=== PATIENT | male | born 1950 | race Caucasian/White ===

== ENCOUNTER 2018-09-01 11:45 | Inpatient (IN) | payer MEDICARE ==
[2018-09-01 12:22] LABS: #Eosinphils 0.1 thou/uL (0.0-0.7); #Lymphocytes 1.4 thou/uL (1.20-3.40); #Monocytes 0.6 thou/uL (0.11-0.59); #Neutrophils 7.1 thou/uL (1.40-6.50); %Basophils 0.4 % (0.0-1.0); %Eosinophils 0.8 % (0.0-10.0); %Lymphocytes 15.2 % (21.0-51.0); %Monocytes 6.3 % (0.0-10.0); %Neutrophils 77.3 % (42.0-75.0); Hemoglobin 18.5 g/dL (14.0-18.0); Mean Corpuscular HGB CONC 32.7 g/dL (32.0-36.0); Mean Corpuscular Hemoglobin 28.9 pg (27.0-31.0); Mean Corpuscular Volume 88.4 fL (78.0-98.0); Mean Platelet Volume 8.5 fL (7.4-10.4); Platelet Count 217 thou/uL (130-400); RBC Distribution Width 13.2 % (11.5-14.5); Red Blood Cell (RBC) Count 6.41 mill/uL (4.70-6.10); White Blood Cell (WBC) Count 9.2 thou/uL (4.8-10.8)
[2018-09-01] MEDS ORDERED: Aspirin 325 MG TAB ONE (12:25)
--- NOTE | 2018-09-01 12:25 | RAD ---
SINGLE VIEW OF THE CHEST: Comparison: 01-14-17 History: Abnormal EKG FINDINGS: Single view of the chest shows a normal sized cardiomediastinal silhouette. There is no evidence of c onsolidation, mass, or pleural effusion. The bones are unremarkable. IMPRESSION: No evidence of acute cardiopulmonary disease. POS: [facility]
[2018-09-01 13:17] LABS: ALT (SGPT) 29 U/L (8-55); AST (SGOT) 23 U/L (5-34); Alkaline Phosphatase 87 U/L (40-150); Anion Gap 15 mmol/L (10-20); BUN (Urea Nitrogen) 30 mg/dL (8.4-25.7); Bilirubin, Total 0.9 mg/dL (0.2-1.2); CK (CPK) 80 U/L (30-200); Calc. Creatinine Clearance 0 mL/min (70-130); Calcium 9.2 mg/dL (7.8-10.44); Carbon Dioxide 27 mmol/L (23-31); Chloride 100 mmol/L (98-107); Estimated GFR-MDRD 54; Glucose 104 mg/dL (80-115); Lipase 15 U/L (8-78); Magnesium 2.4 mg/dL (1.6-2.6); Potassium 4.5 mmol/L (3.5-5.1); Sodium 137 mmol/L (136-145)
[2018-09-01 13:46] LABS: CKMB 4.1 ng/mL (0-6.6); Troponin I 0.027 ng/mL (< 0.028)
[2018-09-01] MEDS ORDERED: Diltiazem 125 MG/25 ML ONE (16:56)
[2018-09-01 17:57] LABS: Troponin I 0.032 ng/mL (< 0.028)
[2018-09-01 21:14] LABS: Troponin I 0.028 ng/mL (< 0.028)
[2018-09-01] MEDS ORDERED: hydrALAZINE 20 MG/ML VIAL SLOW IVP PRN (23:10)
[2018-09-01] MEDS ORDERED: Digoxin 0.5 MG/2 ML AMP SLOW IVP SCH (23:10)
[2018-09-01] MEDS ORDERED: Acetaminophen 325 MG TAB PO PRN (23:10)
[2018-09-02 01:03] VITALS: BMI 48.5
--- NOTE | 2018-09-02 03:24 | HP ---
PRIMARY CARE PHYSICIAN: Dr. Georgie Negrete. CHIEF COMPLAINT: Irregular heartbeat and atrial fibrillation. HISTORY OF PRESENT ILLNESS: Mr. Martinez is a pleasant 68-year-old gentleman who has a history of hypertension and obstructive sleep apnea. He was in his usual state of health until the day of admission. He says he was feeling fine and had gone to see his primary care physician for a routine checkup. She noted that his heart rate was irregular and got an EKG and he was found to be in atrial fibrillation with rapid ventricular response with the heart rates in the 130s to 140s. She sent him over to the ER for evaluation. It was confirmed that he was in atrial fibrillation and RVR, and he is being placed in observation for further management. The patient says that he has not been feeling bad at all. He denies any chest pain or shortness of breath. He denies any dizziness. He denies feeling lightheaded. No nausea, no vomiting. He denies any increase in leg swelling. He says he normally has some dyspnea on exertion, but he says this is regular for him and has not changed. REVIEW OF SYSTEMS: All systems are reviewed and are negative except for that mentioned in the history of present illness. PAST MEDICAL HISTORY: Significant for obstructive sleep apnea, hypertension, dyslipidemia, obesity, and renal cell carcinoma. Also for the hypertension, he is not on blood pressure medication currently. PAST SURGICAL HISTORY: He has had a left nephrectomy. SOCIAL HISTORY: He is . He is a nonsmoker and nondrinker. Has 2 children. He would want to be a full code. FAMILY HISTORY: Significant for diabetes mellitus in his maternal grandmother as well as congestive heart failure. ALLERGIES: NO KNOWN DRUG ALLERGIES. CURRENT MEDICATIONS: Include; 1. Vitamin D2 at 50,000 units daily. 2. Vitamin C 2000 mg daily. 3. Furosemide 80 mg once a day. 4. Potassium chloride 20 mEq daily. 5. Tramadol 50 mg q.6 as needed. 6. Aspirin 325 mg p.o. daily. PHYSICAL EXAMINATION: GENERAL: He is alert and oriented. He appears to be in no acute distress. VITAL SIGNS: Blood pressure was 144/80, heart rate 130, respiratory rate of 20, temperature is 98. HEENT: Pupils are equal, round, and reactive. Extraocular muscles are intact. Sclerae anicteric. Throat, there is no erythema, no exudates. NECK: No adenopathy. No bruits. LUNGS: Clear to auscultation. There is no wheezing, no rales, no rhonchi. CARDIOVASCULAR: Heart rate is tachycardic, is irregular. There are no murmurs, clicks, or rubs. ABDOMEN: Obese. It is soft. It is nontender, nondistended. Positive for bowel sounds. There is no rebound, no guarding, no organomegaly. EXTREMITIES: He has some nonpitting edema. Chronic venous stasis changes. There is no calf tenderness. No joint effusions. NEUROLOGIC: Cranial nerves 2 through 12 are grossly intact. His muscle strength in his upper and lower extremities are also intact. SKIN AND INTEGUMENT: Again, chronic venous stasis changes, some varicose veins, but no other rash or lesions. IMAGING: Chest x-ray by my reading, it is actually poorly penetrated; however, there is no evidence of any infiltrates or cardiomegaly. On his EKG, it is atrial fibrillation, heart rate is 134, he has a left anterior fascicular block. This is also by my reading. LABORATORY RESULTS: White blood cell count is 9.2, hemoglobin 18.5, hematocrit 56.7, platelet count is 217. Sodium 137, potassium 4.5, chloride is 100, CO2 is 27, BUN of 30, creatinine of 1.3, glucose is 104. Troponin is 0.027 and TSH is 1.58. ASSESSMENT: 1. This is a pleasant 68-year-old gentleman who presents to the emergency room in atrial fibrillation with rapid ventricular response. He currently has a heart rate ranging in the low 100s with a borderline blood pressure. We will probably need to admit him full admission given his heart rate continues to fluctuate, give him IV digoxin. An echocardiogram will be ordered as well as a Cardiology consult. We will allow the web marketing strategist to recommend anticoagulation and any further medications with regard to control his atrial fibrillation. 2. For hypertension, currently his blood pressure is low. Should he need any p.r.n. medications, these will be made available. 3. Obstructive sleep apnea. He can use home CPAP with his current settings and further recommendations are to follow. Job ID: [id number]
[2018-09-02 06:23] LABS: #Eosinphils 0.1 thou/uL (0.0-0.7); #Lymphocytes 1.3 thou/uL (1.20-3.40); #Monocytes 0.7 thou/uL (0.11-0.59); %Basophils 0.6 % (0.0-1.0); %Eosinophils 1.7 % (0.0-10.0); %Lymphocytes 15.8 % (21.0-51.0); %Monocytes 8.1 % (0.0-10.0); %Neutrophils 73.9 % (42.0-75.0); Hemoglobin 16.6 g/dL (14.0-18.0); Mean Corpuscular HGB CONC 32.4 g/dL (32.0-36.0); Mean Corpuscular Hemoglobin 28.7 pg (27.0-31.0); Mean Corpuscular Volume 88.4 fL (78.0-98.0); Mean Platelet Volume 8.1 fL (7.4-10.4); Platelet Count 211 thou/uL (130-400); RBC Distribution Width 12.8 % (11.5-14.5); Red Blood Cell (RBC) Count 5.81 mill/uL (4.70-6.10); White Blood Cell (WBC) Count 8.2 thou/uL (4.8-10.8)
[2018-09-02 06:38] LABS: Anion Gap 13 mmol/L (10-20); BUN (Urea Nitrogen) 31 mg/dL (8.4-25.7); Calc. Creatinine Clearance 126 mL/min (70-130); Calcium 9.3 mg/dL (7.8-10.44); Carbon Dioxide 30 mmol/L (23-31); Chloride 99 mmol/L (98-107); Estimated GFR-MDRD 54; Glucose 105 mg/dL (80-115); Potassium 3.8 mmol/L (3.5-5.1); Sodium 138 mmol/L (136-145)
[2018-09-02] MEDS ORDERED: Enoxaparin Sodium 40 MG/0.4 ML SYRINGE SC SCH (09:00)
[2018-09-02] MEDS ORDERED: traMADol HCl 50 MG TAB PO PRN (09:37)
[2018-09-02] MEDS ORDERED: Furosemide 80 MG TAB PO PRN (09:37)
[2018-09-02] MEDS ORDERED: Ergocalciferol 1.25 MG(50,000 UNITS) CAP PO SCH (11:00)
--- NOTE | 2018-09-02 16:03 | PDOC.PN ---
- Subjective Encounter Start Date: 09/02/18 Encounter Start Time: 10:05 Mr. Martinez was seen today in follow-up of Atrial flutter. He does not have any complaints. He denies chest pain or shortness of breath. - Objective Resuscitation Status - Order Detail: 09/01/18 19:14 Resuscitation Status Routine Resuscitation Status: FULL: Full Resuscitation MAR Reviewed: Yes Vital Signs & Weight: Vital Signs (12 hours) Temp Pulse Resp BP Pulse Ox 09/02/18 11:50 98 F 74 20 152/98 H 92 L 09/02/18 07:46 97.8 F 72 20 142/76 H 93 L Weight Weight 358 lb Result Diagrams: 09/02/18 05:20 09/02/18 05:20 Phys Exam - Physical Examination HEENT: PERRLA Respiratory: no wheezing, no rales, no rhonchi, clear to auscultation bilateral Cardiovascular: RRR, no significant murmur Gastrointestinal: soft, non-tender, positive bowel sounds Musculoskeletal: no edema Dx/Plan (1) Atrial flutter Code(s): I48.92 - UNSPECIFIED ATRIAL FLUTTER Status: Acute (2) Hypertension Code(s): I10 - ESSENTIAL (PRIMARY) HYPERTENSION Status: Chronic (3) Morbid obesity Code(s): E66.01 - MORBID (SEVERE) OBESITY DUE TO EXCESS CALORIES Status: Chronic (4) JAVI (obstructive sleep apnea) Code(s): G47.33 - OBSTRUCTIVE SLEEP APNEA (ADULT) (PEDIATRIC) Status: Chronic Comment: CPAP hs - Plan * Atrial Flutter- his heart rate is controlled. * Await further recommendations from Cardiology * Echo is also pending * HTN- patient say this is controlled off medications- so far blood pressure is stable
[2018-09-02] MEDS ORDERED: Metoprolol Tartrate 25 MG TAB PO SCH (22:00)
[2018-09-02] MEDS ORDERED: Apixaban 5 MG TAB PO SCH (22:00)
--- NOTE | 2018-09-03 04:46 | CON ---
DATE OF CONSULTATION: HISTORY OF PRESENT ILLNESS: Judd Martinez is a 68-year-old white male from [place], who i initially evaluated once in the hospital in December 2016. He had been using CPAP for obstructive sleep apnea for 20 years. One and a half years prior to that, he had been admitted to [facility] with shortness of breath. He underwent a probable nuclear stress test and was told that this was normal. He then presented in December 2016 with increased shortness of breath, but no chest discomfort. He had an O2 saturation of 90% and this dropped to the high 80s in spite of 4 L/minute of O2. CT angiogram showed no evidence of pulmonary embolism. He was given IV Lasix. It was felt that he had acute on chronic respiratory failure due to obesity and hypoventilation syndrome with morbid obesity and hypercapnia. Echocardiogram revealed ejection fraction of 50% to 55%. He did undergo nuclear stress testing, which showed no evidence of ischemia. I have not seen him since that time. He now is admitted with atrial fibrillation. He went to see his doctor and was noted to have a fast heartbeat, and EKG was obtained. He denies any chest discomfort. He denies any PND, orthopnea, shortness of breath, or leg edema. He denies any palpitations. PAST MEDICAL HISTORY: Hypertension, diabetes, hyperlipidemia, renal cell carcinoma status post left nephrectomy, obstructive sleep apnea, morbid obesity, benign prostatic hypertrophy. OPERATIONS: Left nephrectomy. SOCIAL HISTORY: He does not smoke. He is . He does not drink. MEDICATIONS: 1. Vitamin D2. 2. Vitamin C. 3. Furosemide 80 mg daily. 4. KCl 20 mEq daily. 5. Tramadol 50 at bedtime. 6. Aspirin 325 daily. ALLERGIES: NONE. REVIEW OF SYSTEMS: A 10-point review of systems unremarkable. PHYSICAL EXAMINATION: VITAL SIGNS: Blood pressure 139/76, pulse of 62 and irregularly irregular. HEENT: PERRL. NECK: Supple. CHEST: Clear. CARDIAC: S1 and S2 normal without any S3, S4, or murmurs. ABDOMEN: Obese. Normal bowel sounds. No tenderness. EXTREMITIES: Revealed no clubbing. There is trace pretibial edema. LABORATORY DATA: EKG reveals atrial fibrillation-flutter with a rate of 134 per minute, possible old inferior infarct, possible old anterior infarct. CBC is unremarkable. Sodium 138, potassium 3.8, chloride 99, carbon dioxide 30, BUN 31 , creatinine 1.32. Cardiac enzymes are unremarkable except one of troponin I of 0.032. TSH is normal. IMPRESSION: 1. New onset atrial fibrillation. He is essentially asymptomatic with this. 2. Obstructive sleep apnea. 3. History of obesity-hypoventilation syndrome. 4. Hyperlipidemia. 5. Hypertension. 6. Chronic kidney disease, status post left nephrectomy for renal cell carcinoma. PLAN: The patient will be started on Eliquis 5 mg b.i.d. for stroke prophylaxis. He will be placed on beta-bruce for better rate control. With his obesity-hypoventilation syndrome, it may be difficult to keep him in a sinus rhythm. Echocardiogram will be performed to assess left ventricular function. Job ID: [id number] [facility]
[2018-09-03] MEDS: Rosuvastatin 10 MG TAB PO SCH (08:36)
[2018-09-03] MEDS: Metoprolol Tartrate 50 MG TAB PO SCH ×2 (08:36→21:07)
[2018-09-03] MEDS: Ascorbic Acid 500 mg Chewable Tablet PO SCH (08:36)
[2018-09-03] MEDS: Potassium Citrate 10 MEQ TAB PO SCH (08:37)
[2018-09-03] MEDS: Apixaban 5 MG TAB PO SCH ×2 (08:37→21:07)
--- NOTE | 2018-09-03 11:50 | PDOC.PN ---
- Subjective Encounter Start Date: 09/03/18 Encounter Start Time: 09:30 Mr. Feliciano was seen today in follow-up of Atrial Flutter. He does not have any complaints this morning. - Objective Resuscitation Status - Order Detail: 09/01/18 19:14 Resuscitation Status Routine Resuscitation Status: FULL: Full Resuscitation MAR Reviewed: Yes Vital Signs & Weight: Vital Signs (12 hours) Temp Pulse Resp BP Pulse Ox 09/03/18 07:38 93 L 09/03/18 07:37 98 F 64 17 115/68 93 L 09/03/18 04:00 97.6 F 52 L 20 110/65 93 L Weight Weight 357 lb 12.8 oz I&O: 09/02/18 09/03/18 09/04/18 06:59 06:59 06:59 Intake Total 1500 Balance 1500 Result Diagrams: 09/02/18 05:20 09/02/18 05:20 Phys Exam - Physical Examination HEENT: PERRLA Respiratory: no wheezing, no rales, no rhonchi, clear to auscultation bilateral Cardiovascular: RRR, no significant murmur, no rub Gastrointestinal: soft, non-tender, no distention, positive bowel sounds Musculoskeletal: no edema Dx/Plan (1) Atrial flutter Code(s): I48.92 - UNSPECIFIED ATRIAL FLUTTER Status: Acute (2) Hypertension Code(s): I10 - ESSENTIAL (PRIMARY) HYPERTENSION Status: Chronic (3) Morbid obesity Code(s): E66.01 - MORBID (SEVERE) OBESITY DUE TO EXCESS CALORIES Status: Chronic (4) JAVI (obstructive sleep apnea) Code(s): G47.33 - OBSTRUCTIVE SLEEP APNEA (ADULT) (PEDIATRIC) Status: Chronic Comment: CPAP hs - Plan * Atrial Flutter- His heart rate has been better, but he remain in Atrial Flutter- continue Metoprolol, and Eliquis for CVA prevention * Echo results noted- he has a mild systolic heart failure * HTN- blood pressure was a bit elevated- will monitor the trend * Await further recommendations from Cardiology.
[2018-09-04 05:47] LABS: Hemoglobin 16.5 g/dL (14.0-18.0); Platelet Count 212 thou/uL (130-400)
[2018-09-04 05:59] LABS: Anion Gap 11 mmol/L (10-20); BUN (Urea Nitrogen) 24 mg/dL (8.4-25.7); Calc. Creatinine Clearance 136 mL/min (70-130); Calcium 9.3 mg/dL (7.8-10.44); Carbon Dioxide 28 mmol/L (23-31); Chloride 103 mmol/L (98-107); Estimated GFR-MDRD 59; Glucose 100 mg/dL (80-115); Potassium 4.2 mmol/L (3.5-5.1); Sodium 138 mmol/L (136-145)
[2018-09-04] MEDS: Apixaban 5 MG TAB PO SCH ×2 (08:58→20:24)
[2018-09-04] MEDS: Rosuvastatin 10 MG TAB PO SCH (08:58)
[2018-09-04] MEDS: Dronedarone HCl 400 MG TAB PO SCH ×2 (08:58→19:05)
[2018-09-04] MEDS: Metoprolol Tartrate 50 MG TAB PO SCH ×2 (08:58→20:24)
--- NOTE | 2018-09-04 10:58 | PQF ---
CLINICAL DOCUMENTATION IMPROVEMENT CLARIFICATION FORM: ICD-10 Updated PLEASE DO AN ADDENDUM TO THE PROGRESS NOTE WITH ANY DOCUMENTATION UPDATES OR ADDITIONS AND CARRY THROUGH TO DC SUMMARY. THANK YOU. DATE: 09/03/18 ATTN: DR. ANSARI Please exercise your independent, professional judgment in responding to the clarification form. Clinical indicators are provided on the bottom of this form for your review Please check appropriate box(s): HEART FAILURE: ACUITY [ ] Acute [ ] Acute on Chronic [ ] Chronic [ ] Other diagnosis [x ] Unable to determine In addition, please specify: Present on Admission (POA): [x ] Yes [ ] No [ ] Unable to determine For continuity of documentation, please document condition throughout progress notes and discharge summary. Thank You. CLINICAL INDICATORS - SIGNS / SYMPTOMS / LABS PROGRESS NOTE 09/03: "ECHO RESULTS NOTED- HE HAS A MILD SYSTOLIC HEART FAILURE" ECHO REPORT: "EJECTION FRACTION IS VISUALLY ESTIMATED AT 45-50%" RISKS: AFIB H/O HYPERTENSION TREATMENT: CARDIAC MONITORING PO LASIX (09/02-PRESENT) CARDIOLOGY CONSULT ECHOCARDIOGRAM (This form is maintained as a part of the permanent medical record) 2014 [employer]. All Rights Reserved TERENCE [email or web address] Office: [phone] [facility]
[2018-09-04] MEDS ORDERED: Glycopyrrolate 0.2 MG/ML 5 ML SYRINGE ONE (11:32)
[2018-09-04] MEDS ORDERED: PROPOFOL 200 MG/20 ML VIAL ONE (11:32)
--- NOTE | 2018-09-04 14:38 | PDOC.PN ---
- Subjective Encounter Start Date: 09/04/18 Encounter Start Time: 11:00 Mr. Martinez was seen today in follow-up. He does not have any complaints this morning. - Objective Resuscitation Status - Order Detail: 09/01/18 19:14 Resuscitation Status Routine Resuscitation Status: FULL: Full Resuscitation MAR Reviewed: Yes Vital Signs & Weight: Vital Signs (12 hours) Temp Pulse Resp BP Pulse Ox 09/04/18 12:00 97.2 F L 74 18 128/72 95 09/04/18 08:00 98.0 F 72 17 134/78 93 L 09/04/18 04:00 96.5 F L 71 16 112/72 95 Weight Weight 357 lb 12.8 oz I&O: 09/03/18 09/04/18 09/05/18 06:59 06:59 06:59 Intake Total 1500 880 Balance 1500 880 Result Diagrams: 09/04/18 05:17 09/04/18 05:17 Phys Exam - Physical Examination HEENT: PERRLA Respiratory: no wheezing, no rales, no rhonchi, clear to auscultation bilateral Cardiovascular: RRR, no significant murmur, no rub Gastrointestinal: soft, non-tender, no distention, positive bowel sounds Musculoskeletal: no edema, pulses present Dx/Plan (1) Atrial flutter Code(s): I48.92 - UNSPECIFIED ATRIAL FLUTTER Status: Acute (2) Hypertension Code(s): I10 - ESSENTIAL (PRIMARY) HYPERTENSION Status: Chronic (3) Morbid obesity Code(s): E66.01 - MORBID (SEVERE) OBESITY DUE TO EXCESS CALORIES Status: Chronic (4) JAVI (obstructive sleep apnea) Code(s): G47.33 - OBSTRUCTIVE SLEEP APNEA (ADULT) (PEDIATRIC) Status: Chronic Comment: CPAP hs - Plan * Atrial Flutter- his heart rate is stable, but he remains in flutter- He has been evaluated by Dr. Adams, and the plan is for RFA today or tomorrow * HTN- blood pressure is stable.
[2018-09-04] MEDS ORDERED: Lidocaine 1% (PF) 30 ML VIAL ONE (16:41)
[2018-09-04] MEDS: Ascorbic Acid 500 mg Chewable Tablet PO SCH (16:41)
[2018-09-04] MEDS ORDERED: Heparin 10,000 UNITS/1 ML VIAL ONE (16:41)
[2018-09-04] MEDS: Potassium Citrate 10 MEQ TAB PO SCH (16:41)
[2018-09-04] MEDS ORDERED: Propofol 500 MG/50 ML VIAL ONE (16:49)
[2018-09-04] MEDS ORDERED: Fentanyl 100 MCG/2 ML VIAL ONE (16:49)
[2018-09-04] MEDS ORDERED: KETAMINE 100 MG/ML (5ML VIAL) ONE (16:49)
[2018-09-04] MEDS ORDERED: Midazolam HCl 2 mg/2 ml Vial ONE (16:49)
[2018-09-04] MEDS ORDERED: DOPamine 400 MG/D5W 250 ML 250 ML ONE (18:01)
--- NOTE | 2018-09-05 01:27 | OP ---
DATE OF PROCEDURE: 09/04/2018 TYPE OF STUDY: Transesophageal echocardiogram report. ADDITIONAL REFERRING PHYSICIAN: Dr. Chou. INDICATION FOR PROCEDURE: Mr. Martinez is a pleasant 68-year-old male with history of morbid obesity. He is here for a transesophageal echocardiogram, hence unknown duration of atrial flutter with left intracardiac clots. DESCRIPTION OF PROCEDURE: The patient has received propofol by Anesthesia specialist. After adequate level of sedation achieved, a standard transesophageal echocardiogram probe was passed into the esophagus without difficulty. The patient tolerated the procedure well. No complications were noted. RESULTS: The left atrium is mildly enlarged about 4.2 cm in horizontal diameter, which may be appropriate for the patient's size. Left atrial appendage is visualized, contains no clots. Left atrial appendage velocities are normal. Four of four pulmonary veins are seen. The interatrial septum is without defect. The mitral valve has mild regurgitation and the aortic valve has trace regurgitation. Three leaflets identified. No stenosis seen. Tricuspid valve has mild regurgitation. Pulmonic valve has trace regurgitation. The right-sided chamber is slightly enlarged. The pericardial space without effusion. The left ventricle is normal in size with mild hypertrophy. The EF is normal over 65% via visualized portion. Ascending and descending aorta without aneurysm, dissection, or atheroma. CONCLUSION: 1. No intracardiac clots. 2. Normal left ventricular systolic function. 3. Mild mitral and tricuspid regurgitation. No other significant valvular heart diseases seen. PLAN: Proceed with ablation. Job ID: [id number]
--- NOTE | 2018-09-05 07:35 | CON ---
DATE OF CONSULTATION: 09/04/2018 ELECTROPHYSIOLOGY CONSULTATION HISTORY OF PRESENT ILLNESS: I am seeing Mr. Martinez at our [facility] telemetry floor for electrophysiology consult. His problems are; 1. Newly found atrial flutter with rapid rate. 2. History of obstructive sleep apnea. 3. History of chronic kidney disease, status post left nephrectomy for renal cell cancer. 4. History of morbid obesity with hypoventilation syndrome. 5. Hypertension. 6. Hyperlipidemia. 7. A 2D echo from 09/02/2018 reveals LVEF of 45% to 50% with right ventricular enlargement, mild mitral regurgitation, mild tricuspid regurgitation. ALLERGIES: NONE NOTED. MEDICATIONS: At home included, 1. Tramadol. 2. Rosuvastatin. 3. Potassium citrate. 4. Furosemide. 5. Cholecalciferol. 6. Aspirin. 7. Vitamin C. SUBJECTIVE: Mr. Martinez is here with progressive rapid heart beat, which was noted during his visit at his primary care physician. He denies chest pain. He has no PND, orthopnea, or lower extremity edema. He has history of fluid overload. He does not feel his palpitations. Rest of 12-point systems are otherwise unremarkable. PAST MEDICAL HISTORY: As above. He has had prior history of dyspnea and admissions for this to the [facility] a year and half ago. He underwent nuclear stress test, which was found to be normal according to him. Since then, no further cardiac followup was noted. He had negative CT scans for pulmonary embolism. He ____ Lasix from assumed diastolic heart failure. Eventually, his obesity and hypoventilation syndrome were blamed for his chronic dyspnea. PAST SURGICAL HISTORY: Significant for left nephrectomy. SOCIAL HISTORY: The patient denies smoking, EtOH, or drug use. He is . FAMILY HISTORY: Not contributory. OBJECTIVE: VITAL SIGNS: Blood pressure is 128/72, heart rate 60, respirations 20, temperature 98 degrees Fahrenheit. GENERAL: Reveals an alert and oriented man, in no apparent distress. NECK: Supple. Jugular veins are not distended. CHEST: Coarse without crackles. HEART: Sounds are irregularly irregular. S1 is variable. No murmur or gallop. ABDOMEN: Benign. Bowel sounds positive. EXTREMITIES: Lower extremities without edema, clubbing, or cyanosis. DATABASE: The telemetry strips reviewed, revealed typical atrial flutter with variable ventricular rate. EKG also suggestive of typical isthmus-dependent flutter. LABORATORY DATA: The white cell count is 8.2, hemoglobin is 16.6, platelet count is 211. Sodium 138, potassium 4.2, BUN is 24, creatinine 1.2. AST and ALT are normal. Troponin I 0.027, 0.032, 0.028 consecutively. The TSH is . ASSESSMENT AND PLAN: Mr. Martinez is a very pleasant 68-year-old man with history of obesity, nephrectomy for renal cell cancer, supposedly in remission. He has normal IV from the current echo. He was admitted with a newly found atrial flutter with rapid rate. We have discussed the potential treatment options. He understands the option for rate control with chronic anticoagulation, but also HATTIE-guided cardioversion or ablation was discussed. He is very much interested in a more definitive approach of an ablation. Prior to it, I think HATTIE would be reasonable hence the unknown duration of his atrial flutter. Cardiomyopathy with jarrell reduced LVEF of 45% to 50% on echo today, possibly related to atrial flutter with rapid rate. I expect it to improve. Anticoagulation, Eliquis started last night. We will hold it this morning in preparation for the ablation and resume likely afterwards. His CHADS-VASc score is 2. With his ( age and HTN), it is reasonable to continue for a month at least after the ablation. Risks and benefits of the procedure were discussed and he is willing to proceed. Job ID: [id number] [facility]
[2018-09-05] MEDS: Rosuvastatin 10 MG TAB PO SCH (09:13)
[2018-09-05] MEDS: Ascorbic Acid 500 mg Chewable Tablet PO SCH (09:13)
[2018-09-05] MEDS: Apixaban 5 MG TAB PO SCH (09:13)
[2018-09-05] MEDS: Dronedarone HCl 400 MG TAB PO SCH (09:13)
[2018-09-05] MEDS: Metoprolol Tartrate 50 MG TAB PO SCH (09:13)
[2018-09-05] MEDS: Potassium Citrate 10 MEQ TAB PO SCH (09:14)
--- NOTE | 2018-09-05 11:53 | PDOC.PN ---
- Subjective Encounter Start Date: 09/05/18 Encounter Start Time: 11:51 Mr. Martinez was seen today in follow-up of Ablation. - Objective Resuscitation Status - Order Detail: 09/01/18 19:14 Resuscitation Status Routine Resuscitation Status: FULL: Full Resuscitation MAR Reviewed: Yes Vital Signs & Weight: Vital Signs (12 hours) Temp Pulse Resp BP Pulse Ox 09/05/18 07:39 97.4 F L 53 L 18 119/75 96 09/05/18 03:30 97.9 F 60 14 115/66 92 L 09/05/18 00:00 97.8 F 63 20 110/72 93 L Weight Weight 357 lb 12.8 oz I&O: 09/04/18 09/05/18 09/06/18 06:59 06:59 06:59 Intake Total 880 1999 Balance 880 1999 Result Diagrams: 09/04/18 05:17 09/04/18 05:17 Phys Exam - Physical Examination Respiratory: no wheezing, no rales, no rhonchi, clear to auscultation bilateral Cardiovascular: RRR, no significant murmur, no rub Gastrointestinal: soft, non-tender, no distention, positive bowel sounds Musculoskeletal: no edema Dx/Plan (1) Atrial flutter Code(s): I48.92 - UNSPECIFIED ATRIAL FLUTTER Status: Acute (2) Hypertension Code(s): I10 - ESSENTIAL (PRIMARY) HYPERTENSION Status: Chronic (3) Morbid obesity Code(s): E66.01 - MORBID (SEVERE) OBESITY DUE TO EXCESS CALORIES Status: Chronic (4) JAVI (obstructive sleep apnea) Code(s): G47.33 - OBSTRUCTIVE SLEEP APNEA (ADULT) (PEDIATRIC) Status: Chronic Comment: CPAP hs - Plan * Atrial flutter s/p ablation- clinically stable * He has been cleared for discharge by EP.
[2018-09-05 12:45] VITALS: BP 114/70; TEMP 97.2
--- NOTE | 2018-09-05 12:46 | OP ---
DATE OF PROCEDURE: 09/04/2018 TYPE OF STUDY: Electrophysiology study and radiofrequency ablation report. REASON FOR PROCEDURE: Mr. Martinez is a 68-year-old male with history of morbid obesity, normal LVEF, here for a newly found atrial flutter. prior to the procedure demonstrates no intracardiac clots, here for ablation. DESCRIPTION OF PROCEDURE: The patient received propofol by Anesthesia specialist. After adequate level of sedation achieved, the right femoral venous area was prepped, draped, and anesthetized using subcutaneous lidocaine and with multipurpose needle, the right femoral vein was accessed under ultrasound guidance. Two 8- Azeri sheaths were introduced through which a decapolar catheter and ThermoCool SFST catheter were advanced into the right atrium. Right atrial map was performed. The CS catheter was placed into the CS. The chamber and His bundle areas were well delineated. Pacing, mapping, and recording were performed at each chamber. The following findings were noted. Baseline rhythm is atrial flutter with a cycle length of 230 milliseconds. The overdrive pacing in the cavotricuspid isthmus seems to be entering the tachycardia and the post pacing interval equals the tachycardia cycle length of 230 milliseconds suggestive of isthmus dependency. Following that, the radiofrequency ablation performed at the cavotricuspid isthmus after a detailed 3D map was obtained of the area. A total of 3 minutes and 11 seconds ablation performed, a total of 6 ablation lesions delivered. Impedance ranges were 110 to 180. During ablation, the flutter terminated. Proximal CS pacing was delivered and the transisthmus times were measured, and further ablation was delivered to ascertain block. The transisthmus time increased up to 190 milliseconds with a transisthmus block demonstrated by longest transisthmus times were adjacent to the ablation line. Basic EP study was performed, at that point sinus node recovery time was 1633, corrected sinus node recovery time was 663 which is increased. AV Wenckebach cycle length was 390, retrograde Wenckebach cycle was 560 milliseconds. AV moni ERP was 600/320 milliseconds tachycardia of 500 milliseconds was seen, but difficult to measure due to self termination. AL was 189 milliseconds, QRS 90 milliseconds, QT 397 milliseconds, AH 95 milliseconds, HV 66 milliseconds. Following this, dopamine was administered. Burst atrial pacing did not reinduce tachyarrhythmia. At the end of the case, left atrial silhouette did not reveal significant pericardial effusion. CONCLUSION: 1. Typical isthmus dependent atrial flutter terminated by CTI ablation. 2. Prolonged sinus node recovery time. 3. Normal AV and normal His bundle function. Job ID: [id number] [facility]
--- NOTE | 2018-09-06 12:07 | DIS ---
DATE OF ADMISSION: 09/01/2018 DATE OF DISCHARGE: 09/05/2018 PRIMARY CARE PHYSICIAN: Georgie Negrete MD DISCHARGE DISPOSITION: Home. PRIMARY DISCHARGE DIAGNOSES: 1. Atrial flutter. 2. Hypertension. 3. Morbid obesity. 4. Obstructive sleep apnea. DISCHARGE MEDICATIONS: Include; 1. Metoprolol 50 mg twice daily. 2. Aspirin 81 mg daily. 3. Eliquis 5 mg twice a day. 4. Tramadol 50 mg q.6 as needed. 5. Crestor 10 mg daily. 6. Potassium chloride 10 mEq daily. 7. Lasix 80 mg daily. 8. Vitamin ascorbic acid 2000 daily. PROCEDURES DONE DURING ADMISSION: The patient had an echocardiogram, it was actually poor visualization due to body habitus, it was technically difficult. The overall LV function was mildly depressed. The EF was 45% to 50%. There was no evidence of any severe valvular disease. The aortic valve was sclerotic. The patient terminated by CTI ablation. CODE STATUS: Full code. ALLERGIES: NO KNOWN DRUG ALLERGIES. HOSPITAL COURSE: Mr. Martinez is a pleasant 68-year-old gentleman, who was sent over to the hospital by his primary care physician after it was noted that he was in atrial flutter with rapid ventricular response. The patient himself was completely asymptomatic. He was started on digoxin initially and then placed on Cardizem. He had a controlled rate, but his atrial flutter did not convert to sinus. He was evaluated by both Cardiology and Electrophysiology, and he ultimately underwent CTI ablation. He had good results with return to sinus mechanism, and was subsequently able to be discharged to home. He was placed on Eliquis for stroke prevention as well as metoprolol twice daily. He was also given information on heart healthy diet as well as weight reduction. He will be following up with his primary care physician in 1 to [address] Adams as instructed. Job ID: [id number]
== END 2018-09-05 14:20 | disposition home or self-care (01) | DRG 274 ==
LOC: ERS 11:45 → ERHOLD 17:24 → OBSVTOIN 17:24 → 2SW 22:41 → 2NO 09-02 01:31
PROVIDERS: ADMIT Internal Medicine; ATTEND Internal Medicine
PROC: 02583ZZ Destruction of Conduction Mechanism, Percutaneous Approach (ICD-10-PCS; principal; 2018-09-04)
PROC: 4A023FZ Measurement of Cardiac Rhythm, Percutaneous Approach (ICD-10-PCS; 2018-09-04)
PROC: 4A0234Z Measurement of Cardiac Electrical Activity, Percutaneous Approach (ICD-10-PCS; 2018-09-04)
PROC: 02K83ZZ Map Conduction Mechanism, Percutaneous Approach (ICD-10-PCS; 2018-09-04)
PROC: B246ZZ4 Ultrasonography of Right and Left Heart, Transesophageal (ICD-10-PCS; 2018-09-04)
DX: I48.92 Unspecified atrial flutter (principal); Z68.42 Body mass index [BMI] 45.0-49.9, adult; I48.91 Unspecified atrial fibrillation; G47.33 Obstructive sleep apnea (adult) (pediatric); E78.5 Hyperlipidemia, unspecified; E66.01 Morbid (severe) obesity due to excess calories; I12.9 Hypertensive chronic kidney disease with stage 1 through stage 4 chronic kidney disease, or unspecified chronic kidney disease; N18.9 Chronic kidney disease, unspecified; I42.9 Cardiomyopathy, unspecified; Z85.528 Personal history of other malignant neoplasm of kidney; Z90.5 Acquired absence of kidney; Z83.3 Family history of diabetes mellitus
CPT/HCPCS: 36415; 71045; 76942; 80048; 80053; 82550; 82553; 83690; 83735; 84443; 84484; 85014; 85018; 85025; 85049; 93005; 93306; 93312; 93613; 93623; 93653; 94760; 96361; 96374; 96376; C1730; C1769; J1160; J1265; J1644; J1650; J2001; J2250; J2704; J3010

== ENCOUNTER 2020-10-11 08:04 | Outpatient (CLI) | payer MEDICARE ==
[2020-10-12 07:10] LABS: SARS-CoV-2 MS2 Positive; SARS-CoV-2 N Gene Positive; SARS-CoV-2 S Gene Positive; SARS-CoV-2 by NAA DETECTED (NotDetected); SARS-CoV-2 orf1ab Positive
== END 2020-10-11 08:05 | disposition home or self-care (01) ==
LOC: LABBT 08:04
PROVIDERS: ATTEND Internal Medicine Gastroenterology
DX: U07.1 COVID-19 (principal); Z01.812 Encounter for preprocedural laboratory examination; Z86.010 Personal history of colon polyps
CPT/HCPCS: 87635; U0003

== ENCOUNTER 2020-11-08 07:06 | Day surgery (SDC) | payer MEDICARE ==
[2020-11-07 12:29] VITALS: BMI 48.8
[2020-11-08] MEDS ORDERED: Succinylcholine 200 MG/10 ml SYRINGE FS ONE (10:46)
[2020-11-08] MEDS ORDERED: ePHEDrine 50 MG/ML VIAL ONE (10:46)
[2020-11-08] MEDS ORDERED: Rocuronium Bromide 10 MG/ML (10ML VIAL) ONE (10:46)
[2020-11-08] MEDS ORDERED: PROPOFOL 200 MG/20 ML VIAL ONE (10:46)
[2020-11-08] MEDS ORDERED: Ondansetron PF 4 MG/2 ML Vial ONE (10:46)
[2020-11-08] MEDS ORDERED: SUGAMMADEX SODIUM 200 MG/2 ML VIAL ONE (10:55)
--- NOTE | 2020-11-08 12:12 | OP ---
DATE OF PROCEDURE: 11/08/2020 PROCEDURE PERFORMED: Colonoscopy with polypectomy, hot and cold, and closure of mucosal defect with hemoclip. PREPROCEDURE DIAGNOSES: Personal history of colon polyps with colonoscopy in 2017 with multiple polyps removed at that time including an aphthous ulcer in the cecum, biopsies of which showed focal low-grade adenomatous changes with no dysplasia. POSTPROCEDURE DIAGNOSES: 1. Very difficult colonoscopy secondary to body habitus requiring intubation and paralyzation to reach the cecum. 2. Ten polyps ranging in size from 2 to 7 mm were found scattered throughout the colon from the ascending to the sigmoid, removed by snare polypectomy, both hot and cold, and submitted to Pathology. 3. A 1 cm pedunculated polyp was noted in the transverse colon, removed by hot snare polypectomy and submitted to Pathology. 4. Flat polyp was noted in the cecum, removed by hot snare polypectomy. This was 1 cm x 1.5 cm in size. Hemoclips were used to close the mucosal defect. RECOMMENDATIONS: 1. Await his pathology. 2. Repeat colonoscopy in 1 to 2 years depending on pathology. 3. Recommend weight loss. 4. Call office in one week for results. ANESTHESIA: TIVA converted to general endotracheal anesthesia. PROCEDURE IN DETAIL: After the patient was informed of the risks, benefits, and possible complications of endoscopy including perforation, reaction to medication, and aspiration, informed consent was obtained. The patient was brought to endoscopy suite, where he was sedated in gradual fashion. Once he was comfortable, the rectal examination was normal. The endoscope was advanced to the anal canal through the colon to the cecum. We were able to only get to the ascending colon. Multiple polyps, 10 to 12, were taken out, range in size from 2 to 7 mm with cold and hot snares. We could see a flat polyp in the cecum, but could not get there. Ultimately, we decided to move the patient to his back. Due to his large body habitus, he was not breathing well in that position, so we moved him back to his side. At this point in time, we terminated the procedure and decided to intubate him for airway protection and to paralyze him, so we could get to the cecum of the colon. Once he was intubated, sedated, and paralyzed on his back. We went back in with the colonoscope. We were able to get to the cecum, removed a large 1 x 2 cm flat polyp in 2 specimens and submitted to Pathology. The defect in the mucosa was closed. No other masses or lesions were seen. Four or five other polyps were noted. A 1 cm pedunculated polyp was found in the sigmoid colon. These were all removed and submitted to pathology as well. Retroflexion was performed. The scope was removed. The patient tolerated the procedure well. There were no complications. Job ID: [id number]
== END 2020-11-08 12:59 | disposition home or self-care (01) ==
LOC: SDC 07:06
PROVIDERS: ATTEND Internal Medicine Gastroenterology
PROC: 0DBK8ZX Excision of Ascending Colon, Via Natural or Artificial Opening Endoscopic, Diagnostic (ICD-10-PCS; principal; 2020-11-08)
PROC: 0DBL8ZX Excision of Transverse Colon, Via Natural or Artificial Opening Endoscopic, Diagnostic (ICD-10-PCS; 2020-11-08)
PROC: 0DBM8ZX Excision of Descending Colon, Via Natural or Artificial Opening Endoscopic, Diagnostic (ICD-10-PCS; 2020-11-08)
PROC: 0DBH8ZX Excision of Cecum, Via Natural or Artificial Opening Endoscopic, Diagnostic (ICD-10-PCS; 2020-11-08)
DX: Z12.11 Encounter for screening for malignant neoplasm of colon (principal); D12.0 Benign neoplasm of cecum; D12.2 Benign neoplasm of ascending colon; D12.3 Benign neoplasm of transverse colon; D12.4 Benign neoplasm of descending colon; Z86.010 Personal history of colon polyps; Z79.82 Long term (current) use of aspirin; Z79.899 Other long term (current) drug therapy; Z90.5 Acquired absence of kidney
CPT/HCPCS: 88305; J2405; J2704; J3490

== ENCOUNTER 2023-01-17 06:04 | Day surgery (SDC) | payer MEDICARE ==
[2023-01-16 09:57] VITALS: BMI 48.8
[2023-01-17] MEDS ORDERED: Lidocaine 1% PF 5 ML VIAL ONE (08:00)
[2023-01-17] MEDS ORDERED: PROPOFOL 200 MG/20 ML VIAL ONE (08:00)
[2023-01-17] MEDS ORDERED: Phenylephrine 10 MG/ML VIAL ONE (08:00)
== END 2023-01-17 09:44 | disposition home or self-care (01) ==
LOC: SDC 06:04
PROVIDERS: ATTEND Internal Medicine Gastroenterology
PROC: 0DBK8ZX Excision of Ascending Colon, Via Natural or Artificial Opening Endoscopic, Diagnostic (ICD-10-PCS; principal; 2023-01-17)
PROC: 0DBL8ZX Excision of Transverse Colon, Via Natural or Artificial Opening Endoscopic, Diagnostic (ICD-10-PCS; 2023-01-17)
PROC: 0DBN8ZX Excision of Sigmoid Colon, Via Natural or Artificial Opening Endoscopic, Diagnostic (ICD-10-PCS; 2023-01-17)
PROC: 0DBM8ZX Excision of Descending Colon, Via Natural or Artificial Opening Endoscopic, Diagnostic (ICD-10-PCS; 2023-01-17)
DX: Z12.11 Encounter for screening for malignant neoplasm of colon (principal); D12.3 Benign neoplasm of transverse colon; D12.4 Benign neoplasm of descending colon; K63.5 Polyp of colon; K57.30 Diverticulosis of large intestine without perforation or abscess without bleeding; G47.33 Obstructive sleep apnea (adult) (pediatric); I10 Essential (primary) hypertension; E66.01 Morbid (severe) obesity due to excess calories; Z68.42 Body mass index [BMI] 45.0-49.9, adult; Z86.010 Personal history of colon polyps; Z79.82 Long term (current) use of aspirin; Z79.899 Other long term (current) drug therapy; Z90.5 Acquired absence of kidney
CPT/HCPCS: 88305; J2370; J2704

== ENCOUNTER 2024-11-06 13:00 | Emergency (ER) | payer MEDICARE ==
[2024-11-06 15:06] LABS: #Basophils 0.03 10x3/uL (0.0-0.2); %Basophils 0.3 % (0.0-1.0); %Eosinophils 1.5 % (0.0-10.0); %Lymphocytes 9.3 % (21.0-51.0); %Monocytes 8.7 % (0.0-10.0); %Neutrophils 79.8 % (42.0-75.0); Hematocrit 48.7 % (42.0-52.0); Hemoglobin 16.1 g/dL (14.0-18.0); Mean Corpuscular HGB CONC 33.1 g/dL (32.0-36.0); Mean Corpuscular Volume 90.7 fL (78.0-98.0); Mean Platelet Volume 9.8 fL (7.4-10.4); Platelet Count 180 10x3/uL (130-400); RBC Distribution Width 13.1 % (11.5-14.5); Red Blood Cell (RBC) Count 5.37 mill/uL (4.70-6.10)
[2024-11-06 15:21] LABS: ALT (SGPT) 25 U/L (Less than 45); AST (SGOT) 25 U/L (11-34); Albumin 3.7 g/dL (3.1-4.5); Alkaline Phosphatase 94 U/L (40-110); Anion Gap 14 mmol/L (10-20); BUN (Urea Nitrogen) 22 mg/dL (8.4-25.7); Bilirubin, Total 0.7 mg/dL (0.3-1.2); Calc. Creatinine Clearance 0 mL/min (70-130); Calcium 9.4 mg/dL (7.8-10.44); Carbon Dioxide 29 mmol/L (23-31); Chloride 107 mmol/L (98-107); Estimated GFR 52; Globulin 3.5 g/dL (2.4-3.5); Glucose 105 mg/dL (83-110); Potassium 4.4 mmol/L (3.5-5.1); Protein, Total 7.2 g/dL (5.8-8.1); Sodium 146 mmol/L (136-145)
[2024-11-07] MEDS ORDERED: Bacitracin 1 PK ONE (14:30)
== END 2024-11-06 16:13 ==
LOC: ERS 13:00
DX: S60.450A Superficial foreign body of right index finger, initial encounter (principal); I48.91 Unspecified atrial fibrillation; X58.XXXA Exposure to other specified factors, initial encounter
CPT/HCPCS: 36415; 80053; 85025; 99283